=== PATIENT | male | born 1975 ===

== ENCOUNTER 2021-06-02 11:39 | Inpatient (IN) | payer MEDICAID, SELFPAY ==
[2021-06-02 11:50] VITALS: BMI 27.8
[2021-06-02 11:54] VITALS: BP 109/73; PULSE 96; RESP 16; TEMP 36.7; O2SAT 100
[2021-06-02] MEDS: ondansetron 4 MG Tablet PO ×2 (13:28→21:51)
[2021-06-02 14:00] VITALS: BP 109/73; PULSE 96; RESP 16; TEMP 36.7; O2SAT 100
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
[2021-06-02] MEDS: acetaminophen 325 mg Tablet 650 MG PO (16:23)
[2021-06-02] MEDS: dicyclomine 10 mg Capsule PO ×2 (17:09→21:37)
[2021-06-02 20:19] VITALS: BP 131/80; PULSE 81; RESP 17; TEMP 37.6; O2SAT 98
[2021-06-02] MEDS: trazodone 50 mg Tablet PO (21:37)
[2021-06-02] MEDS: hyDROXYzine 25 mg Capsule 50 MG PO (21:37)
--- NOTE | 2021-06-02 21:55 | PC.NURSE ---
Trazodone 50mg, vistaril 50mg for sleep and anxiety. Zofran 4mg given for nausia.
[2021-06-03 06:00] VITALS: BP 133/88; PULSE 78; RESP 18; TEMP 36.9; O2SAT 97
[2021-06-03] MEDS: pantoprazole DR 40 mg Tablet PO (08:36)
[2021-06-03] MEDS: tamsulosin 0.4 mg Capsule PO (08:36)
[2021-06-03] MEDS: dicyclomine 10 mg Capsule PO ×4 (08:36→20:58)
[2021-06-03] MEDS: ondansetron 4 MG Tablet PO ×2 (08:36→21:22)
[2021-06-03] MEDS: acetaminophen 325 mg Tablet 650 MG PO (11:37)
[2021-06-03] MEDS: ibuprofen 800 mg tablet PO (12:56)
[2021-06-03 14:00] VITALS: BP 127/79; PULSE 101; RESP 18; TEMP 35.9; O2SAT 99
--- NOTE | 2021-06-03 14:48 | P.PN_ITS ---
Subjective NPU Subjective: Interval history: I met with the treatment team to discuss the patient's care and disposition. The social science research assistant reports that [facility], [facility], will accept him back, but only if he is not going to frequently need to go to the ED. The patient reports that he continues to be depressed and anxious. He continues to have suicidal ideation, related to his feeling that his medical condition is out of control and unresolved. Continues to have some pain and nausea, which may be due to the kidney stone, or his prior condition. He has no side effects on medication. Mental Status Exam MSE Comments: I met with the patient in the day room, and he was appropriately groomed and dressed wearing hospital scrubs. He was friendly, calm, cooperative, interactive, good eye contact. As before, he did have some distress at times when the pain increased. No psychomotor agitation or retardation Speech is at a regular rate and rhythm, normal volume, good articulation, not pressured Alert, oriented to person and situation Attention and concentration were intact to exam. Memory is somewhat impaired. Mood is depressed and anxious. Affect is brighter than yesterday. Thought process is logical and goal-directed. Thought content, patient denies auditory and visual hallucinations, intermittent current suicidal ideation, no homicidal ideation. No delusions are noted. Insight and judgment appear to be fair Vitals/I&O/Wt Last Vital Signs Temp 97.8 F 06/04/21 06:00 Pulse 114 H 06/04/21 06:00 Resp 18 06/04/21 06:00 BP 133/89 06/04/21 06:00 Pulse Ox 99 06/04/21 06:00 Weight last 48 hrs Weight 83.007 kg A&P Assessment and plan (1) Chronic nausea: Status: Acute (2) Chronic pain disorder: Status: Acute (3) Major depressive disorder, recurrent severe without psychotic features: Status: Acute (4) Suicidal ideation: Status: Acute Additional A&P Information The patient is a 45-year-old man whose chronic pain and intermittent nausea prevents him from working, leading to homelessness, and then causing depression, worthlessness, hopelessness and suicidal ideation and behavior. Apparently no physiological cause of the pain or nausea has been determined, leaving the patient feeling very discouraged. 1. Continue current medication. 2. Continue every 15 minute checks for safety. 3. Encourage individual, group and milieu therapies. 4. Encourage sober living treatment after discharge at the highest level of care to which he is willing to commit. Involuntary Hold Information 96 Hour Hold: 96 Hour Involuntary Admission: No Attestations NPU Medical Necessity Statement*: Psychiatric hospitalization is medically necessary to prevent access to lethal means, to reevaluate medication, and to coordinate a safe discharge. Patient will be in the hospital for over 2 midnights. Likely length of stay is 2-4days. 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
[2021-06-03] MEDS: calcium carbonate 500 mg Chew Tablet 1000 MG PO ×2 (17:15→21:25)
[2021-06-03] MEDS: hyDROXYzine 25 mg Capsule 50 MG PO (20:58)
[2021-06-03] MEDS: trazodone 50 mg Tablet PO (20:58)
[2021-06-03 21:20] LABS: Glucose Point of Care 88 mg/dL (70-110)
[2021-06-03 22:00] VITALS: BP 157/94; PULSE 79; RESP 18; TEMP 37.2; O2SAT 99
[2021-06-04 06:00] VITALS: BP 133/89; PULSE 114; RESP 18; TEMP 36.6; O2SAT 99
[2021-06-04] MEDS: tamsulosin 0.4 mg Capsule PO (08:49)
[2021-06-04] MEDS: pantoprazole DR 40 mg Tablet PO (08:49)
[2021-06-04] MEDS: ibuprofen 800 mg tablet PO (08:49)
[2021-06-04] MEDS: dicyclomine 10 mg Capsule PO ×2 (08:49→14:42)
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
[2021-06-04 11:15] VITALS: BP 133/89; PULSE 114; RESP 18; TEMP 36.6; O2SAT 99
[2021-06-04] MEDS: ondansetron 4 MG Tablet PO (14:42)
== END 2021-06-04 14:22 | disposition home or self-care (01) | DRG 885 ==
PROVIDERS: Admitting Provider Psychiatry & Neurology Child & Adolescent Psychiatry; Visit Provider Psychiatry & Neurology Child & Adolescent Psychiatry
DX: F33.2 Major depressive disorder, recurrent severe without psychotic features (principal); R45.851 Suicidal ideations; R11.0 Nausea; G89.29 Other chronic pain; N20.0 Calculus of kidney; Z59.0 Homelessness
CPT/HCPCS: 36416; 82962; Q0162